=== PATIENT | male | born 1950 | race African-American/Black ===

== ENCOUNTER 2019-08-29 12:51 | Emergency (ER) | payer MEDICARE, OTHER ==
[~2019-08-29] VITALS: Ht 182.9 cm; Wt 77.1 kg
[2019-08-29] MEDS ORDERED: Morphine Sulfate 4mg/ml Inj (IV USE ONLY) IVP ONE ×2 (13:15→22:00)
--- NOTE | 2019-08-29 13:57 | Emergency Room Report ---
History of Present Illness General Chief Complaint: Lower Extremity Injury Source: Patient, Medical Record, EMS Present Illness HPI Disclaimer: Please note that this report is being documented using DRAGON technology. This can lead to erroneous entry secondary to incorrect interpretation by the dictating instrument. HPI: 69-year-old male history of arthritis, hypertension, diabetes presented with left knee left ankle and left leg pain. Patient apparently got his leg caught in the spokes of a wheelchair 2 days ago. Since that time is had left leg pain that is 10 out of 10. Nonradiating mildly improved with his [place] that he takes for his chronic pain. Worse with movement. Allergies: Coded Allergies: No Known Allergies (Unverified , 08/29/19) COVID-19 Screening Contact w/high risk pt: No Recent Travel to affected area: No Experienced COVID-19 symptoms?: No COVID-19 Testing performed [employer]: Yes COVID-19 Screening: Negative COVID-19 COVID-19 Testing Source: [facility] Patient History Reviewed Nursing Documentation: PMH: Agreed; PSxH: Agreed Nursing Documentation-PMH Past Medical History: No History, Except For Hx Cardiac Problems: Yes Hx Hypertension: Yes Hx COPD: Yes Hx Diabetes: Yes - neuropathy History Of Psychiatric Problem: Yes - mdd , ftt Review of Systems All Other Systems: negative except mentioned in HPI Physical Exam Vital Signs Date Time Temp Pulse Resp B/P (MAP) Pulse Ox O2 Delivery O2 Flow Rate FiO2 08/29/19 12:47 98 08/29/19 12:47 98.8 67 17 120/70 (87) Room Air Sp02 EP Interpretation: reviewed, normal General Appearance: well appearing, no apparent distress Head: normocephalic, atraumatic Eyes: bilateral eye PERRL, bilateral eye EOMI ENT: hearing grossly normal, moist mucus membranes Neck: full range of motion, supple Respiratory: lungs clear, normal breath sounds, no rhonchi, no respiratory distress, no retraction, no wheezing Cardiovascular #1: normal peripheral pulses, regular rate, rhythm, no murmur Gastrointestinal: non tender, soft, non-distended, no guarding Musculoskeletal: other - Left knee mildly swollen tender without obvious deformity, 2+ pulses distally, left ankle full range of motion with mild pain. No calf tenderness bilaterally. Neurologic: alert, oriented x3, no focal defects Skin: normal color, warm/dry Medical Decision Making Diagnostic Impression: Primary Impression: Left knee sprain Additional Impressions: Left ankle sprain Osteoarthritis ER Course MDM: 69-year-old male presented for left lower extremity pain. Differential included but not limited to sprain versus arthralgias versus did consider DVT. On exam patient did have tenderness of his knee and ankle. He has obvious osteoarthritis of his knee. Clinical course-IV, pain control, x-rays, ultrasound of the lower extremity ordered. X-rays reviewed showed osteoarthritis. No acute fracture dislocation. Ultrasound negative for DVT. Laboratory studies showed a potassium of 5.5 but kidney function normal and no EKG changes. I did speak with patient's primary care doctor, Dr. Langford who wished to admit patient to the hospitald for orthopedic consultation and observation and pain control. Patient was agreeable with the plan. He admitted to the telemetry floor Labs - Laboratory Tests Test 08/29/19 13:20 White Blood Count 9.2 K/UL (4.8-10.8) Red Blood Count 5.02 M/UL (4.70-6.10) Hemoglobin 12.3 G/DL (14.2-18.0) L Hematocrit 39.5 % (42.0-52.0) L Mean Corpuscular Volume 79 FL (80-99) L Mean Corpuscular Hemoglobin 24.4 PG (27.0-31.0) L Mean Corpuscular Hemoglobin Concent 31.0 G/DL (32.0-36.0) L Red Cell Distribution Width 16.9 % (11.6-14.8) H Platelet Count 385 K/UL (150-450) Mean Platelet Volume 6.5 FL (6.5-10.1) Neutrophils (%) (Auto) % (45.0-75.0) Lymphocytes (%) (Auto) % (20.0-45.0) Monocytes (%) (Auto) % (1.0-10.0) Eosinophils (%) (Auto) % (0.0-3.0) Basophils (%) (Auto) % (0.0-2.0) Differential Total Cells Counted 100 Neutrophils % (Manual) 65 % (45-75) Lymphocytes % (Manual) 23 % (20-45) Monocytes % (Manual) 7 % (1-10) Eosinophils % (Manual) 5 % (0-3) H Basophils % (Manual) 0 % (0-2) Band Neutrophils 0 % (0-8) Platelet Estimate Adequate Platelet Morphology Normal Hypochromasia 1+ Anisocytosis 1+ Prothrombin Time 11.1 SEC (9.30-11.50) Prothrombin Time INR 1.0 (0.9-1.1) Activated Partial Thromboplast Time 30 SEC (23-33) Sodium Level 140 MMOL/L (136-145) Potassium Level 5.5 MMOL/L (3.5-5.1) H Chloride Level 103 MMOL/L (98-107) Carbon Dioxide Level 27 MMOL/L (21-32) Anion Gap 11 mmol/L (5-15) Blood Urea Nitrogen 12 mg/dL (7-18) Creatinine 0.8 MG/DL (0.55-1.30) Estimated Glomerular Filtration Rate > 60 mL/min (>60) Glucose Level 107 MG/DL (74-106) H Calcium Level 9.9 MG/DL (8.5-10.1) Total Bilirubin 0.2 MG/DL (0.2-1.0) Aspartate Amino Transferase (AST) 15 U/L (15-37) Alanine Aminotransferase (ALT) 22 U/L (12-78) Alkaline Phosphatase 70 U/L (46-116) Total Protein 8.2 G/DL (6.4-8.2) Albumin 3.9 G/DL (3.4-5.0) Globulin 4.3 g/dL Albumin/Globulin Ratio 0.9 (1.0-2.7) L On reevaluation: Pain improved Plan-patient will be admitted to the telemetry floor EKG Diagnostic Results Rate: normal Rhythm: NSR, other - First-degree AV block ST Segments: no acute changes Other X-Ray Diagnostic Results Other X-Ray Diagnostic Results #1: X-Ray ordered: Knee, left # of Views/Limited Vs Complete: 3 View Indication: Pain EP Interpretation: Yes Interpretation: no dislocation, no fractures, other - Osteoarthritis Impression: Other - Osteoarthritis changes Electronically Signed by: Jamie Sweet MD Other X-Ray Diagnostic Results #2: X-Ray ordered: Left ankle Indication: Pain EP Interpretation: Yes Interpretation: no dislocation, no fractures Impression: No acute disease Electronically Signed by: Jamie Sweet MD Last Vital Signs Date Time Temp Pulse Resp B/P (MAP) Pulse Ox O2 Delivery O2 Flow Rate FiO2 6/3/20 12:47 98.8 67 17 120/70 (93) 95 Room Air Disposition: ADMITTED INPATIENT Condition: Serious Jamie Sweet M.D. Aug 29, 2019 13:57
[2019-08-29 14:02] LABS: HEMATOCRIT 39.5 % (42.0-52.0); HEMOGLOBIN 12.3 G/DL (14.2-18.0); MEAN CORPUSCULAR VOLUME 79 FL (80-99); PLATELET COUNT 385 K/UL (150-450); RED BLOOD COUNT 5.02 M/UL (4.70-6.10); RED CELL DISTRIBUTION WIDTH 16.9 % (11.6-14.8); WHITE BLOOD COUNT 9.2 K/UL (4.8-10.8)
--- NOTE | 2019-08-29 14:11 | Diagnostic Imaging Report ---
Indication: Left ankle pain Technique: 3 views of the left ankle Comparison: none Findings: No acute fractures. No dislocations. The joint spaces are preserved. There are vascular calcifications. There is plantar and calcaneal spurs. Impression: No acute process
--- NOTE | 2019-08-29 14:12 | Diagnostic Imaging Report ---
Indication: Right knee pain Technique: 3 views of the right knee Comparison: None Findings: There are severe degenerative narrowing the medial and lateral joint compartments as well as the patellofemoral compartment. No suprapatellar effusion. There are medial and lateral osteophytes. There is chondral calcinosis of the medial and lateral menisci. No acute fractures. No dislocations. Traction osteophytes are seen in the anterior patella lower pole. There are vascular calcifications Impression:. Extensive degenerative changes No acute bony trauma
[2019-08-29 14:16] LABS: ANION GAP 11 mmol/L (5-15); BLOOD UREA NITROGEN 12 mg/dL (7-18); CALCIUM 9.9 MG/DL (8.5-10.1); CARBON DIOXIDE 27 MMOL/L (21-32); CHLORIDE 103 MMOL/L (98-107); CREATININE 0.8 MG/DL (0.55-1.30); POTASSIUM 5.5 MMOL/L (3.5-5.1); SODIUM 140 MMOL/L (136-145)
[2019-08-29 14:20] LABS: ALANINE AMINOTRANSFERASE 22 U/L (12-78); ALBUMIN 3.9 G/DL (3.4-5.0); ALBUMIN/GLOBULIN RATIO 0.9 (1.0-2.7); ALKALINE PHOSPHATASE 70 U/L (46-116); ASPARTATE AMINO TRANSFERASE 15 U/L (15-37); BILIRUBIN,TOTAL 0.2 MG/DL (0.2-1.0)
[2019-08-29] MEDS ORDERED: AMLODIPINE BESY10 MG ORAL (15:05)
[2019-08-29] MEDS ORDERED: CYMBALTA60 MG ORAL (15:05)
[2019-08-29] MEDS ORDERED: NOVOLOG100 UNIT/4 SQ (15:05)
[2019-08-29] MEDS ORDERED: MELOXICAM15 MG PO (15:05)
[2019-08-29] MEDS ORDERED: NEURONTIN600 MG ORAL (15:05)
[2019-08-29] MEDS ORDERED: ANORO ELLIPTA1 EACH ORAL (15:05)
[2019-08-29] MEDS ORDERED: MULTIVITAMINS1 EAC8 ORAL (15:05)
[2019-08-29] MEDS ORDERED: DULCOLAX10 MG RC (15:05)
[2019-08-29] MEDS ORDERED: BACLOFEN10 MG ORAL (15:05)
[2019-08-29] MEDS ORDERED: LISINOPRIL10 MG ORAL (15:05)
[2019-08-29] MEDS ORDERED: METFORMIN HCL1000 M1 ORAL (15:05)
[2019-08-29] MEDS ORDERED: FLEET ENEMA133 ML RECTAL (15:05)
[2019-08-29] MEDS ORDERED: PROVENTIL HFA6.7 G1 IH (15:05)
[2019-08-29] MEDS ORDERED: NORCO 10-325 T1 EACH ORAL (15:05)
[2019-08-29] MEDS ORDERED: MOM30 ML ORAL (15:05)
[2019-08-29] MEDS ORDERED: ACETAMINOPHEN325 M1 ORAL (15:05)
--- NOTE | 2019-08-29 15:58 | Diagnostic Imaging Report ---
Indication: Left leg pain Technique: Grayscale and duplex images of the left lower extremity veins Comparison: None Findings: On the left, grayscale and duplex images demonstrate no evidence of intraluminal thrombus. Normal phasic Doppler waveforms, demonstrating normal augmentation response and no evidence of valvular insufficiency. Greater saphenous vein(s) and tibial veins are patent. Normal compressibility. Incidental finding is made of a small left knee joint effusion Impression: Negative for evidence of lower extremity deep venous thrombosis on the left Incidental finding of a small left knee joint effusion
[2019-08-29 17:26] VITALS: BP 134/72
[2019-08-29] MEDS ORDERED: Solu-MEDROL 125mg Inj IVP ONE (19:00)
[2019-08-29] MEDS: Albuterol ud Inhalation HHN SCH ×3 (19:10→19:32)
[2019-08-29] MEDS: Ipratropium 0.02% Inh Soln 2.5ml UD HHN SCH ×3 (19:10→19:32)
[2019-08-29 19:30] VITALS: BP 144/70
--- NOTE | 2019-08-29 19:38 | Diagnostic Imaging Report ---
EXAM: XR Chest, 1 View CLINICAL HISTORY: SOB TECHNIQUE: Frontal view of the chest. COMPARISON: None FINDINGS: Hardware: None. Lungs/pleura: Hyperinflation of the lungs. No focal consolidation. No pleural effusion or pneumothorax. Heart/mediastinum: Normal. No cardiomegaly. Soft tissues: Unremarkable. Bones: No acute fracture. Degenerative changes of the spine. Upper abdomen: Normal. IMPRESSION: Hyperinflation of the lungs. No focal consolidation.
[2019-08-29 21:45] VITALS: BP 149/62
[2019-08-29] MEDS ORDERED: Morphine Sulfate 4mg/ml Inj (IV USE ONLY) ONE (21:59)
[2019-08-29 22:30] VITALS: BP 134/69
[2019-08-29 22:53] VITALS: BP 134/69
--- NOTE | 2019-08-30 | History and Physical Report ---
DATE OF ADMISSION: 08/29/2019 HISTORY OF PRESENT ILLNESS: This is a 69-year-old male who came from the group home where he was having left leg swelling, intractable pain, unable to walk and has discoloration of the left leg. The patient with DVT. The patient has no DVT, but he is still unable to walk and complaining of a lot of pain, 10/10 and left knee has mild swelling. PAST MEDICAL HISTORY: Significant for diabetes hypertension, neuropathy, and severe degenerative arthritis. MEDICATIONS: See the list. ALLERGIES: NKA. FAMILY HISTORY: Noncontributory. SOCIAL HISTORY: The patient lives at a group home. His COVID test at group home was negative. PHYSICAL EXAMINATION: VITAL SIGNS: Blood pressure is 136/90, pulse 74, and respirations 18. HEENT: AT/NC. EOMI. PERRLA. NECK: Supple. No JVD. CHEST: Bilaterally decreased breath sounds. CARDIOVASCULAR: Regular rhythm. No gallop. No murmur. ABDOMEN: Soft. Positive bowel sounds. Nontender. EXTREMITIES: Left knee swelling, diffuse tenderness, and unable to move. GENITOURINARY: Deferred. LABORATORY DATA: The patient has an x-ray. It was negative but showing degenerative arthritis changes. ASSESSMENT: 1. Severe synovitis on the left knee. 2. Peripheral vascular disease. 3. Severe arthritis. 4. Hyperkalemia. His K was 5.6. PLAN: The patient will admit on medical floor. Consider Ortho consult and Pain Management and PT and OT. Anant Cevallos M.D. DR: SUZANNE JOB#: [id number] CC:
== END 2019-08-29 18:30 | disposition other institution (70) ==
LOC: EDBD 12:51 → EMR 13:55 → EDBEDREQSVC 14:54 → EDBEDREQTM 15:36 → EDBEDREQSVC 15:36 → EMR 18:30
DX: S83.92XA Sprain of unspecified site of left knee, initial encounter (principal); S93.402A Sprain of unspecified ligament of left ankle, initial encounter; M19.90 Unspecified osteoarthritis, unspecified site; E11.9 Type 2 diabetes mellitus without complications; I10 Essential (primary) hypertension; J44.9 Chronic obstructive pulmonary disease, unspecified; E11.40 Type 2 diabetes mellitus with diabetic neuropathy, unspecified; F32.9 Major depressive disorder, single episode, unspecified; I44.0 Atrioventricular block, first degree; X58.XXXA Exposure to other specified factors, initial encounter; Y92.9 Unspecified place or not applicable
CPT/HCPCS: 36415; 71045; 73562; 73610; 80053; 83880; 84484; 85007; 85025; 85610; 85730; 93005; 93971; 96374; 96375; 96376; 99285; J2270; J2930